=== PATIENT | male | born 1975 | race Caucasian/White ===

== ENCOUNTER 2021-11-22 20:37 | Emergency (ER) | payer OTHER ==
[~2021-11-22] VITALS: Ht 175.3 cm; Wt 99.8 kg
[2021-11-22 22:06] LABS: Basophils # (auto) 0.1 10 ^3/uL (0-0.2); Basophils % (auto) 1.1 % (0.0-2.0); Eosinophils # (auto) 0.2 10 ^3/uL (0-0.8); Eosinophils % (auto) 1.8 % (0.0-7.0); Hematocrit 39.9 % (41.0-53.0); Hemoglobin 13.7 g/dL (13.5-17.5); Lymphocytes # (auto) 2.2 10 ^3/uL (0.4-5.4); Lymphocytes % (auto) 19.5 % (10.0-50.0); Mean Corpuscular Hemoglobin 27.6 pg (28.0-32.0); Mean Corpuscular Hgb Conc. 34.2 g/dL (32.0-36.0); Mean Corpuscular Volume 80.7 fL (80.0-100.0); Monocytes # (auto) 0.6 10 ^3/uL (0-1.3); Monocytes % (auto) 5.4 % (0.0-12.0); Neutrophils % (auto) 72.2 % (37.0-80.0); Nucleated Red Blood Cells % 0.1 %; Red Blood Cells 4.95 10^6/uL (4.5-5.90); Red Cell Distribution Width 15.1 % (11.8-14.3); White Blood Cell 11.1 10^3/uL (4.4-10.8)
[2021-11-22 22:23] LABS: Albumin 3.4 g/dL (3.4-5.0); BUN/Creatinine Ratio 12.4; Calcium 8.6 mg/dL (8.5-10.1); Potassium 3.6 mmol/L (3.5-5.1)
[2021-11-22 22:27] LABS: Bilirubin, Total 0.4 mg/dL (0.2-1.0); Total Protein 7.5 g/dL (6.4-8.2)
[2021-11-22] MEDS ORDERED: LISI-275 PO (23:26)
[2021-11-23 00:09] VITALS: BP 153/115
== END 2021-11-23 00:11 | disposition home or self-care (01) ==
LOC: EDBD 20:37 → EEVIPCON 20:43 → ER 20:43 → EDSEX 20:43 → ER 11-23 00:11
DX: I10 Essential (primary) hypertension (principal)
CPT/HCPCS: 36415; 80053; 83880; 84484; 85025; 93005

== ENCOUNTER 2024-05-11 15:00 | Emergency (ER) | payer SELFPAY ==
[~2024-05-11] VITALS: Ht 182.9 cm; Wt 90.0 kg
[~2024-05-11 15:00] MED LIST: LISI-275 PO
[2024-05-11] MEDS: cloNIDine HCL 0.1 MG TAB PO ONE ×2 (15:36→16:30)
[2024-05-11] MEDS: cloNIDine HCL 0.1 MG TAB ONE (15:54)
[2024-05-11 17:40] VITALS: BP 191/107; PULSE 99; RESP 16; O2SAT 97
== END 2024-05-11 17:46 | disposition home or self-care (01) ==
LOC: ER 15:00
DX: I16.0 Hypertensive urgency (principal)